=== PATIENT | male | born 1950 | race Caucasian/White ===

== ENCOUNTER 2017-12-17 18:45 | Emergency (ER) | payer OTHER, MEDICAID ==
[~2017-12-17] VITALS: Ht 172.7 cm; Wt 117.9 kg
[2017-12-17 18:45] VITALS: BP_SYST 181
--- NOTE | 2017-12-17 18:45 | NUR ---
BROUGHT BACK TO BED #2 AND TRIAGED. REPORT GIVEN TO MICKY
--- NOTE | 2017-12-17 19:00 | NUR ---
Patient brought in by daughter complaining of right flank pain after falling 8 days ago going upstairs at home hitting right flank. Bruising noted to right flank. Denies any pain at this time. Daughter at bedside. No other complaints/injuries per patient or as noted. Will continue to monitor.
--- NOTE | 2017-12-17 19:16 | NUR ---
ER PA Vazquez at bedside examining patient.
[2017-12-17 19:48] LABS: CALCIUM 8.9 mg/dL (8.4-11.0); CREATININE 1.06 mg/dL (0.55-1.30); POTASSIUM 3.9 mmol/L (3.5-5.1)
[2017-12-17 19:52] LABS: ALBUMIN 3.1 g/dL (3.4-4.8); BASOPHILS # (AUTO) 0.2 K/uL (0.0-0.2); EOSINOPHILS # (AUTO) 0.1 K/uL (0.0-0.4); EOSINOPHILS % (AUTO) 1.7 % (0.0-4.0); HEMATOCRIT 42.6 % (36-54); HEMOGLOBIN 14.4 g/dL (14.0-18.0); LYMPHOCYTES # (AUTO) 2.4 K/uL (1.0-5.5); LYMPHOCYTES % (AUTO) 28.5 % (20.5-51.5); MEAN CORPUSCULAR HEMOGLOBIN 31 pg (27-31); MEAN CORPUSCULAR HGB CONC 34 % (32-36); MEAN CORPUSCULAR VOLUME 91 fL (79.0-98.0); MONOCYTES # (AUTO) 0.8 K/uL (0.0-1.0); MONOCYTES % (AUTO) 9.4 % (1.7-9.3); NEUTROPHILS % (AUTO) 58.4 % (40.0-70.0); PLATELET COUNT (AUTO) 277 K/uL (130-430); RED BLOOD CELL COUNT(AUTO) 4.66 MIL/uL (4.2-6.2); RED CELL DISTRIBUTION WIDTH 12.2 % (9.0-15.0); TOTAL BILIRUBIN 0.3 mg/dL (0.0-1.0); WHITE BLOOD COUNT (AUTO) 8.5 K/uL (4.8-10.8)
[2017-12-17] MEDS ORDERED: NIAC500T2 PO (20:49)
[2017-12-17] MEDS ORDERED: SIMV40TA2 PO (20:49)
[2017-12-17] MEDS ORDERED: ESCI20TA PO (20:49)
[2017-12-17] MEDS ORDERED: UBID1CAP58 PO (20:49)
[2017-12-17] MEDS ORDERED: FLO44 INH (20:49)
[2017-12-17] MEDS ORDERED: MONT10TA25 PO (20:49)
[2017-12-17] MEDS ORDERED: BUDE6HFA INH (20:49)
[2017-12-17] MEDS ORDERED: TEMA7.5C PO (20:49)
[2017-12-17] MEDS ORDERED: METO-442 PO ×2 (20:49)
[2017-12-17] MEDS ORDERED: CLOP75TA2 PO (20:49)
[2017-12-17] MEDS ORDERED: ASPI-1063 PO (20:49)
--- NOTE | 2017-12-17 20:49 | NUR ---
Medication reconciliation completed with information provided by PATIENT. Any prior medication reconciliation on file was reviewed and corrected.
[2017-12-17] MEDS: BACITRACIN 1 GM OINT TP ONE (22:28)
[2017-12-17 22:30] VITALS: BP_SYST 148
--- NOTE | 2017-12-17 22:30 | NUR ---
Patient given written and verbal discharge instructions and verbalizes understanding. ER MD MILTON AND ANNALISA VALENZUELA discussed with patient the results and treatment provided. Patient in stable condition. ID arm band removed. IV catheter removed intact and dressing applied, no active bleeding. Rx of BACITRACIN given. Patient educated on pain management and to follow up with PMD. Pain Scale 0/10. Opportunity for questions provided and answered.
== END 2017-12-17 22:30 | disposition home or self-care (01) ==
LOC: SED 18:45
DX: S20.20XA Contusion of thorax, unspecified, initial encounter (principal); I10 Essential (primary) hypertension; Z86.73 Personal history of transient ischemic attack (TIA), and cerebral infarction without residual deficits; Z79.82 Long term (current) use of aspirin; Z79.899 Other long term (current) drug therapy; W19.XXXA Unspecified fall, initial encounter; Y93.89 Activity, other specified; Y92.89 Other specified places as the place of occurrence of the external cause; Y99.8 Other external cause status
CPT/HCPCS: 36415; 71250-TC; 80053; 83690-TC; 85025; 85610-TC; 93005; 99285

== ENCOUNTER 2019-02-26 17:29 | Emergency (ER) | payer MEDICAID, OTHER ==
[~2019-02-26] VITALS: Ht 165.1 cm; Wt 102.1 kg
[~2019-02-26 17:29] MED LIST: ASPI-1153 PO; BUDE6HFA INH; CLOP75TA2 PO; ESCI20TA PO; FLO44 INH; METO-442 PO; MONT10TA25 PO; NIAC500T2 PO; SIMV40TA2 PO; TEMA7.5C PO; UBID1CAP58 PO
[2019-02-26 17:34] VITALS: BP_SYST 163
[2019-02-26 19:11] LABS: HEMOGLOBIN 15.9 g/dL (14.0-18.0); RED BLOOD CELL COUNT(AUTO) 5.12 MIL/uL (4.2-6.2); WHITE BLOOD COUNT (AUTO) 9.5 K/uL (4.8-10.8)
[2019-02-26 19:12] LABS: HEMATOCRIT 45.9 % (36-54); LYMPHOCYTES % (AUTO) 16.7 % (20.5-51.5); MEAN CORPUSCULAR HEMOGLOBIN 31 pg (27-31); MEAN CORPUSCULAR HGB CONC 35 % (32-36); MEAN CORPUSCULAR VOLUME 90 fL (79.0-98.0); MONOCYTES % (AUTO) 8.1 % (1.7-9.3); NEUTROPHILS % (AUTO) 74.1 % (40.0-70.0); PLATELET COUNT (AUTO) 268 K/uL (130-430); RED CELL DISTRIBUTION WIDTH 13.2 % (9.0-15.0)
[2019-02-26 19:13] LABS: BASOPHILS % (AUTO) 0.3 % (0.0-2.0); EOSINOPHILS # (AUTO) 0.1 K/uL (0.0-0.4); EOSINOPHILS % (AUTO) 0.8 % (0.0-4.0); LYMPHOCYTES # (AUTO) 1.6 K/uL (1.0-5.5); MONOCYTES # (AUTO) 0.8 K/uL (0.0-1.0); NEUTROPHILS # (AUTO) 7.1 K/uL (1.8-7.7)
[2019-02-26 19:14] LABS: CALCIUM 9.2 mg/dL (8.4-11.0); CREATININE 1.19 mg/dL (0.55-1.30); POTASSIUM 4.2 mmol/L (3.5-5.1)
[2019-02-26] MEDS ORDERED: cefTRIAXone 1 GM in D5W 50 ML IV ONE (19:15)
[2019-02-26 19:22] LABS: ALBUMIN 2.9 g/dL (3.4-4.8); TOTAL BILIRUBIN 0.4 mg/dL (0.0-1.0)
[2019-02-26] MEDS ORDERED: cefTRIAXone 1 GM VIAL ONE (19:28)
[2019-02-26 19:35] LABS: INR 0.9 (0.80-1.20); PROTHROMBIN TIME 9.7 SECS (9.5-12.5)
[2019-02-26 20:05] VITALS: BP_SYST 195
== END 2019-02-26 20:15 | disposition short-term general hospital (02) ==
LOC: SED 17:29
DX: G45.9 Transient cerebral ischemic attack, unspecified (principal); F03.90 Unspecified dementia, unspecified severity, without behavioral disturbance, psychotic disturbance, mood disturbance, and anxiety; I10 Essential (primary) hypertension; Z79.82 Long term (current) use of aspirin; Z79.899 Other long term (current) drug therapy
CPT/HCPCS: 36415; 70450; 71045; 80053; 82550; 83605; 84484; 85025; 85610; 85730; 87040; 93005; 96365; 99285; J0696